=== PATIENT | female | born 1990 | race Caucasian/White ===

== ENCOUNTER 2016-12-20 23:27 | Inpatient (IN) | payer MEDICAID ==
[2016-12-21] MEDS ORDERED: Sodium Chloride 0.9% 10 ML Syringe FLUSH PRN (00:38)
[2016-12-21] MEDS ORDERED: Ondansetron 4 MG/2 ML SDV IVPUSH PRN ×2 (00:38→01:35)
[2016-12-21] MEDS ORDERED: Nalbuphine 20 MG/1 ML Amp IVPUSH PRN (00:38)
[2016-12-21] MEDS ORDERED: Oxytocin/Lactated Ringers 10 UNIT/1,000 ML BAG IV SCH ×2 (00:45→03:40)
[2016-12-21] MEDS: Lactated Ringers 1,000 ML IV SCH ×4 (01:05→08:44)
[2016-12-21] MEDS ORDERED: ePHEDrine 50 MG/ML SDV IVPUSH PRN (01:35)
[2016-12-21] MEDS ORDERED: fentaNYL 100 MCG/2 ML SDV EPIDUR PRN (01:35)
[2016-12-21] MEDS ORDERED: diphenhydrAMINE 50 MG/ML SDV IVPUSH PRN (01:35)
[2016-12-21] MEDS: Bupivacaine/fentaNYL/NS 100 ML Bag EPIDUR SCH ×3 (02:00→15:00)
--- NOTE | 2016-12-21 07:33 | PCM.LDHP ---
L&D History of Present Illness - General Date of Service: 12/21/16 Admit Problem/Dx: Patient Status Order with Admit Dx/Problem 12/21/16 00:46 Patient Status [ADT] Routine Admission Diagnosis/Problem Admission Diagnosis/Problem Labor established 12/21/16 07:11 Intrauterine at 40 and 6/7th weeks gestation. - History of Present Illness Introduction:: The patient is a 26-year-old, 1, para 0 white female with an DALLAS of , who was admitted during the night with complaints of contractions. She has made progression and is presently at 3 cm dilation. Course: The patient's last menstrual period was on 03/05/2016, was definite, using no control at the time of conception. She had an IUD removed in October of 2015 , and her first menses after this was in January and was a normal menses. Her DALLAS was changed to 12/15/2016 based on ultrasound done on 06/05/2016 and supported by ultrasound done on 08/08/2016. Her course has been relatively unremarkable. She desires and epidural. She had an [place] Depression Screen score of 0 on 08/07/2016. Tdap vaccine was given on 11/13/2016. Group B strep screen was negative. She declined genetic screening. She plans on . Her course weight gain was 131 up to 195 pounds. Her vital signs were stable throughout and fundal height growth was appropriate. She does have seasonal asthma. Laboratory Testing: Showed blood to be A positive with a negative antibody screen. Her hemoglobin was 13.2 at first visit and platelets were 257,000. She is rubella immune. RPR is nonreactive. Her urine culture was positive for gardnerella vaginalis. Hepatitis B and HIV assays were negative. Chlamydia and gonorrhea were negative. She declined genetic testing. Her second trimester testing showed a hemoglobin of 11.4 and her platelets were 231,000. Her 1-hour glucose was 129. Group B strep screen was negative. Allergies: tramadol; rash zithromax tabs; vomiting hydrocodone-acetaminophen; rash Current Medications: Metronidazole 500 mg oral tablet; 1 tablet twice daily Zyrtec 10 oral tablet ProAir HFA 108; 1-2 puffs every 4-6 hours PRN Past Medical History: Depression; previously on medication Asthma Past Surgical History: oral surgery; 2009 - Related Data Allergies/Adverse Reactions: Allergies Allergy/AdvReac Type Severity Reaction Status Date / Time hydrocodone Allergy Hives Verified 12/21/16 00:51 tramadol Allergy Hives Verified 12/21/16 00:51 azithromycin [From Zithromax] AdvReac Nausea and Verified 07/25/14 17:33 Vomiting Penicillins AdvReac Nausea and Verified 07/25/14 17:33 Vomiting Home Medications: Home Meds Albuterol [Ventolin HFA] 2 puff INH BID PRN 09/27/13 [History] Montelukast [Singulair] 10 mg PO DAILY 09/27/13 [History] Doxycycline [Vibramycin] 100 mg PO BID #20 tab 07/25/14 [Rx] oxyCODONE HCl/Acetaminophen [Percocet 5-325 mg Tablet] 1 each PO Q4H PRN #20 tablet 07/25/14 [Rx] Past Medical History - Past Health History Medical/Surgical History: Denies Medical/Surgical History Social & Family History - Family History Other Family History: Mother: alive; healthy Father: alive; HTN 1 brother and 3 sisters; 1 sister with epilepsy and 1 with bipolar disorder Maternal Grandmother: ; breast cancer Maternal Grandfather: ; colon cancer Paternal Grandmother: ; unknown Paternal Grandfather: ; unknown No bleeding, clotting, or anesthesia problems - Tobacco Use Smoking Status *Q: Current Every Day Smoker Years of Tobacco use: 3 Used Tobacco, but Quit: No - Alcohol Use Days Per Week of Alcohol Use: 1 Number of Drinks Per Day: 1 Total Drinks Per Week: 1 - Recreational Drug Use Recreational Drug Use: No - Living Situation & Occupation Social History Comment: The patient is , is Jakub Vega. They live in [place]. The patient is a homemaker. She does not use any signficant amoutns of alcohol, drugs or tobacco H&P Review of Systems - Review of Systems: Review Of Systems: See Below Free Text/Narrative: Respiratory: No dyspnea, recent infectious symptoms. Does have asthma and seasonal allergies. Cardiovascular: No chest pain or history of murmurs. Breasts: Changes associated only with . GI: No diarrhea, nausea, and constipation. : Changes associated with . No burning with urination. Musculoskeletal: Edema during and at present. Neurological: No headaches or vision changes L&D Exam - Exam Exam: See Below - Vital Signs Vital Signs: General: The patient is a well-developed, well-nourished, pleasant female of stated age, in no acute distress Vital Signs: Her blood pressure was 118/60 on 12/18/2016 on last clinic evaluation. Her weight was 195 with pregravid weight of 131. heart rate was 133. Body mass index prior to was 23.2 Skin: warm and dry without lesions Lungs: Clear to auscultation bilaterally Cardiovascular: Regular rate and rhythm without murmurs Breasts: Exam deferred having been done by earlier last year and found to be normal. Abdomen: Protuberant with and fundal height of 40 cm. Baby in a vertex presentation, cervical exam today was 3 cm, 100% effaced, soft, 2- and mid position. Extremities: 1+ edema Weight: 196 lb - Patient Data Lab Results Last 24 hrs: Laboratory Results - last 24 hr 12/20/16 12/20/16 Range/Units 23:59 23:59 WBC 13.02 H (3.98-10.04) K/mm3 RBC 4.20 (3.98-5.22) M/mm3 Hgb 12.5 (11.2-15.7) gm/L Hct 37.2 (34.1-44.9) % MCV 88.6 (79.4-94.8) fl MCH 29.8 (25.6-32.2) pg MCHC 33.6 (32.2-35.5) g/dl RDW Std Deviation 43.0 (36.4-46.3) fL Plt Count 206 (182-369) K/mm3 MPV 10.4 (9.4-12.3) fl Neut % (Auto) 67.4 (34.0-71.1) % Lymph % (Auto) 23.3 (19.3-51.7) % Elbert % (Auto) 8.3 (4.7-12.5) % Eos % (Auto) 0.4 L (0.7-5.8) Baso % (Auto) 0.2 (0.1-1.2) % Neut # (Auto) 8.78 H (1.56-6.13) K/mm3 Lymph # (Auto) 3.04 (1.18-3.74) K/mm3 Elbert # (Auto) 1.08 H (0.24-0.36) K/mm3 Eos # (Auto) 0.05 (0.04-0.36) K/mm3 Baso # (Auto) 0.02 (0.01-0.08) K/mm3 Blood Type A POSITIVE Gel Antibody Screen Negative Result Diagrams: 12/20/16 23:59 Problem List Initiated/Reviewed/Updated: Yes Orders Last 24hrs: Active Orders 24 hr Category Date Time Status Patient Status [ADT] Routine ADT 12/21/16 00:46 Active Activity as Tolerated [RC] PFP Care 12/21/16 00:46 Active Communication Order [RC] ASDIRECTED Care 12/21/16 00:46 Active Heart Tones [RC] ASDIRECTED Care 12/21/16 00:47 Active Notify Provider [RC] PFP Care 12/21/16 00:46 Active Notify Provider [RC] PRN Care 12/21/16 00:46 Active Peripheral IV Care [RC] . DIRECTED Care 12/21/16 00:47 Active Vital Signs [RC] PER UNIT ROUTINE Care 12/21/16 00:46 Active PATIENT RETYPE [BBK] Routine Lab 12/20/16 23:59 Results TYPE AND SCREEN [BBK] Routine Lab 12/21/16 00:38 Results Bupivacaine/fentaNYL/NS [fentaNYL/Bupivacaine/NS 2 MCG- Med 12/21/16 01:45 Active 0.125% 100 ML] 100 ml EPIDUR ASDIRECTED Lactated Ringers [Ringers, Lactated] 1,000 ml Med 12/21/16 00:45 Active IV ASDIRECTED Ondansetron [Zofran] Med 12/21/16 01:35 Active 4 mg IVPUSH ONETIME PRN Ondansetron [Zofran] Med 12/21/16 00:38 Active 4 mg IVPUSH Q4H PRN Oxytocin/Lactated Ringers [Pitocin in LR 10 Units/1,000 Med 12/21/16 00:45 Active ML] 10 unit in 1,000 ml IV .CONTINUOUS Sodium Chloride 0.9% [Saline Flush] Med 12/21/16 00:38 Active 10 ml FLUSH ASDIRECTED PRN diphenhydrAMINE [Benadryl] Med 12/21/16 01:35 Active 25 mg IVPUSH Q6H PRN ePHEDrine [ePHEDrine Sulfate] Med 12/21/16 01:35 Active 5 mg IVPUSH ASDIRECTED PRN fentaNYL [Sublimaze] Med 12/21/16 01:35 Active 100 mcg EPIDUR Q3H PRN Electronic Heart Tones Ext w TOCO [WOMSER] Oth 12/21/16 00:46 Ordered Routine Electronic Heart Tones Internal [WOMSER] Per Unit Ot 12/21/16 00:46 Ordered Routine Peripheral IV Insertion Adult [OM.PC] Routine Oth 12/21/16 00:46 Ordered Resuscitation Status Routine Resus Stat 12/21/16 00:38 Ordered Medication Orders Diphenhydramine HCl (Benadryl) 25 mg IVPUSH Q6H PRN PRN Reason: Pruritis Ephedrine Sulfate (Ephedrine Sulfate) 5 mg IVPUSH ASDIRECTED PRN PRN Reason: Hypotension Fentanyl (Sublimaze) 100 mcg EPIDUR Q3H PRN PRN Reason: Pain Fentanyl/Bupivacaine HCl (Fentanyl/Bupivacaine/Ns 2 Mcg-0.125% 100 Ml) 100 ml EPIDUR ASDIRECTED RAMONA Lactated Ringer's (Ringers, Lactated) 1,000 mls @ 100 mls/hr IV ASDIRECTED RAMONA Oxytocin/Lactated Ringer's (Pitocin In Lr 10 Units/1,000 Ml) 10 unit in 1,000 mls @ 500 mls/hr IV .CONTINUOUS RAMONA Ondansetron HCl (Zofran) 4 mg IVPUSH Q4H PRN PRN Reason: Nausea/Vomiting Ondansetron HCl (Zofran) 4 mg IVPUSH ONETIME PRN PRN Reason: Nausea/Vomiting Sodium Chloride (Saline Flush) 10 ml FLUSH ASDIRECTED PRN PRN Reason: Keep Vein Open Assessment/Plan Comment:: Assessment: 1. Term intrauterine at 40 and 6/7th weeks gestational age, progression of cervical dilation 2. Group B strep screen was negative 3. Epidural desired 4. Patient plans to nurse Plan: 1. Anticipate normal spontaneous vaginal delivery 2. Epidural PRN per patient's desire 3. CBC if epidural desired 4. Support nursing decision
--- NOTE | 2016-12-21 15:03 | PCM.SN ---
- Free Text/Narrative Note: in room at 1450 c/o pain epidural at T10 bolus with .25% bupivicaine 10 ml VSS out room at 1503
[2016-12-21] MEDS ORDERED: Aluminum Hydroxide/Magnesium Hydroxide/Simethicone Susp 30 ML Cup PO ONE (19:33)
--- NOTE | 2016-12-21 21:10 | PCM.SN ---
- Free Text/Narrative Note: Rebecca is a 26-year-old 1 now para 1001 white female who was admitted early this a.m. at 40-6/7 weeks gestational age in active labor. She progressed slowly to approximately 3 cm and then more rapidly until complete she became complete at approximately 1915 hrs. on 12/21/2016. Patient had artificial rupture membranes during the course of her labor and at 6 cm had an intrauterine pressure catheter placed. She was on Pitocin to augment her labor. Very light meconium-stained amniotic fluid was noted and Dr. Dumont was present at the delivery because of this. Patient delivered a 3370 g (7 pound 6.9 ounce) male infant named Matthew absent 2036 hrs. Baby delivered in a left occiput anterior position. The baby was noted to have a nuchal cord which was moderately tight and reduced over the baby 's body. After delivery the cord was clamped 2, cut and then baby is handed off to Dr. dumont in the warmer for his attention. R's were 8 and 9. Length was 19.5 inches. The cord was obtained. Placenta was delivered spontaneously in a Lacey presentation. It appeared intact and complete. Placenta was discarded. Patient is noted to have very superficial bilateral medial labia minora lacerations that appeared to be without significant anatomical distortion and were not bleeding. No evidence of hematoma noted. She did have a first-degree perineal laceration which is bleeding somewhat and was repaired with a single [id number] suture. Patient received Pitocin after the baby was delivered to facilitate uterine tone and decreased bleeding. After delivery of placenta the patient was returned to supine position. Epidural catheter was removed without problems. Estimated blood loss was 100 mL. Patient is planning to nurse. Condition: Good.
[2016-12-21] MEDS ORDERED: Bupivacaine 0.25% 10 ML SDV ONE (21:13)
[2016-12-21] MEDS ORDERED: Docusate Sodium 100 MG Cap PO PRN (21:13)
[2016-12-21] MEDS ORDERED: Lanolin 100% Cream 7 GM Tube TOP PRN (21:13)
[2016-12-21] MEDS ORDERED: Albuterol 6.7 GM Inhaler INH PRN (21:13)
[2016-12-21] MEDS ORDERED: Witch Hazel Medicated Pads 100/Jar TOP PRN (21:13)
[2016-12-21] MEDS ORDERED: Benzocaine/Menthol 20%-0.5% Spray 56 GM Canister TOP PRN (21:13)
[2016-12-21] MEDS ORDERED: Acetaminophen 325 MG Tab PO PRN (21:13)
[2016-12-21] MEDS ORDERED: Aluminum Hydroxide/Magnesium Hydroxide/Simethicone Susp 30 ML Cup PO PRN (21:20)
[2016-12-21] MEDS: Ibuprofen 600 MG Tab PO PRN (22:21)
[2016-12-22] MEDS: Prenatal Multivitamin with Calcium/Folic Acid/Iron Tab PO SCH (08:42)
[2016-12-22] MEDS: Ibuprofen 600 MG Tab PO PRN ×3 (08:44→20:01)
[2016-12-22] MEDS ORDERED: Montelukast 10 MG Tab PO SCH (09:00)
--- NOTE | 2016-12-22 09:28 | PCM48HPAN ---
Post Anesthesia Note - EVALUATION WITHIN 48HRS OF ANESTHETIC Vital Signs in Normal Range: Yes Patient Participated in Evaluation: Yes Respiratory Function Stable: Yes Airway Patent: Yes Cardiovascular Function Stable: Yes Hydration Status Stable: Yes Pain Control Satisfactory: Yes Nausea and Vomiting Control Satisfactory: Yes Mental Status Recovered: Yes
--- NOTE | 2016-12-22 15:48 | PCM.SN ---
- Free Text/Narrative Note: Rebecca is day 1. She is doing well. She has minimal lochia, is voiding well, ambulating without concerns and nursing without problems. Vital signs are stable, patient is afebrile. Abdomen is soft, nontender uteruses two finger breath below the umbilicus Legs nontender. Minimal edema noted. Assessment/plan: day 1, doing well. Recommend routine cares. CBC.
[2016-12-23] MEDS: Ibuprofen 600 MG Tab PO PRN ×2 (03:45→09:35)
[2016-12-23 04:18] VITALS: BP 113/69
[2016-12-23] MEDS: Prenatal Multivitamin with Calcium/Folic Acid/Iron Tab PO SCH (09:30)
--- NOTE | 2016-12-23 10:25 | PCM.DCSUM1 ---
Discharge Summary - Hospital Course Free Text/Narrative:: Rebecca is a 26-year-old 1 now para 1001 white female who was admitted early on the morning of 12/21/2016 at 40-6/7 weeks gestational age in active labor. She progressed slowly to approximately 3 cm and then more rapidly until complete she became complete at approximately 1915 hrs. on 12/21/2016. Patient had artificial rupture membranes during the course of her labor and at 6 cm had an intrauterine pressure catheter placed. She was on Pitocin to augment her labor. Very light meconium-stained amniotic fluid was noted and Dr. Dumont was present at the delivery because of this. Patient delivered a 3370 g (7 pound 6.9 ounce) male infant named Matthew absent 7 hrs. Baby delivered in a left occiput anterior position. The baby was noted to have a nuchal cord which was moderately tight and reduced over the baby 's body. After delivery the cord was clamped 2, cut and then baby is handed off to Dr. dumont in the warmer for his attention. R's were 8 and 9. Length was 19.5 inches. The cord was obtained. Placenta was delivered spontaneously in a Lacey presentation. It appeared intact and complete. Placenta was discarded. Patient is noted to have very superficial bilateral medial labia minora lacerations that appeared to be without significant anatomical distortion and were not bleeding. No evidence of hematoma noted. She did have a first-degree perineal laceration which is bleeding somewhat and was repaired with a single [id number] suture. Patient received Pitocin after the baby was delivered to facilitate uterine tone and decreased bleeding. After delivery of placenta the patient was returned to supine position. Epidural catheter was removed without problems. Estimated blood loss was 100 mL. Patient is planning to nurse. patient is done well. She is nursing well, voiding without problems, has had no significant pain. She is ambulating well and is desiring to be discharged. Follow-up CBC is within normal aunts for the period - Discharge Data Discharge Date: 12/23/16 Discharge Disposition: Home, Self-Care 01 Condition: Good - Patient Instructions Diet: Regular Diet as Tolerated (Nursing diet with increased calories and calcium as directed.) Activity: As Tolerated (No intercourse or tampons until bleeding resolves) Driving: May Drive Today Showering/Bathing: May Shower (May take a bath) Notify Provider of: Fever, Increased Pain, Swelling and Redness, Nausea and/or Vomiting - Discharge Plan Home Medications: Home Meds Albuterol [Ventolin HFA] 2 puff INH BID PRN 09/27/13 [History] Montelukast [Singulair] 10 mg PO DAILY 09/27/13 [History] Ibuprofen [IJD: Ibuprofen] 600 mg PO Q4H PRN #30 tablet 12/23/16 [Rx] Vit with Ca/FA/Iron [ Plus Iron] 1 each PO DAILY tablet [Rx] Referrals: Javier Ness MD [Physician] - [facility] - Discharge Summary/Plan Comment DC Time >30 min.: No Discharge Summary/Plan Comment: Discharge instructions: 1. Discharge home 2. Regular, high fiber, nursing diet was increased calories and calcium as directed. 3. Routine precautions given concern increased pain, bleeding, temperature, signs/symptoms of DVT/PE. 4. Medications per home medication was printed, discussed with him given to the patient. 5. Return to clinic-Dr. Ness-6 weeks-[facility]. Diagnosis: 40 week intrauterine , delivered Condition: Good - Patient Data Vitals - Most Recent: Last Vital Signs Temp 36.0 C 12/23/16 04:00 Pulse 79 12/23/16 04:00 Resp 15 12/23/16 04:00 BP 113/69 12/23/16 04:00 Pulse Ox 98 12/23/16 04:00 Weight - Most Recent: 88.904 kg I&O - Last 24 hours: Intake & Output 12/22/16 12/23/16 12/23/16 22:59 06:59 14:59 Intake Total 400 Balance 400 Lab Results - Last 24 hrs: Laboratory Results - last 24 hr 12/22/16 Range/Units 21:09 WBC 16.20 H (3.98-10.04) K/mm3 RBC 3.52 L (3.98-5.22) M/mm3 Hgb 10.4 L (11.2-15.7) gm/L Hct 31.9 L (34.1-44.9) % MCV 90.6 (79.4-94.8) fl MCH 29.5 (25.6-32.2) pg MCHC 32.6 (32.2-35.5) g/dl RDW Std Deviation 44.6 (36.4-46.3) fL Plt Count 158 L (182-369) K/mm3 MPV 10.0 (9.4-12.3) fl Med Orders - Current: Current Medications Acetaminophen (Tylenol) 650 mg PO Q4H PRN PRN Reason: mild pain or fever Al Hydroxide/Mg Hydroxide (Mag-Al Plus) 30 ml PO Q4H PRN PRN Reason: Heartburn Last Admin: 12/21/16 22:21 Dose: 30 ml Albuterol (Proventil Hfa) 0 gm INH BID PRN PRN Reason: Wheezing Benzocaine/Menthol (Dermoplast Pain Relief [place]) 0 gm TOP ASDIRECTED PRN PRN Reason: Perineal Comfort Measure Last Admin: 12/21/16 22:22 Dose: 1 can Docusate Sodium (Colace) 100 mg PO BID PRN PRN Reason: Constipation Emollient Ointment (Lansinoh Hpa) 0 gm TOP ASDIRECTED PRN PRN Reason: Sore Nipples Ibuprofen (Motrin) 600 mg PO Q4H PRN PRN Reason: Mild pain or fever Last Admin: 12/23/16 09:35 Dose: 600 mg Montelukast Sodium (Singulair) 10 mg PO DAILY [facility] Last Admin: 12/23/16 09:30 Dose: Not Given Prenat Multivit/Banning/Iron/Folic Ac ( Plus Iron) 1 each PO DAILY [facility] Last Admin: 12/23/16 09:30 Dose: 1 each Witch Maci (Tucks) 1 pad TOP ASDIRECTED PRN PRN Reason: Hemorrhoid pain Last Admin: 12/21/16 22:21 Dose: 1 box Discontinued Medications Al Hydroxide/Mg Hydroxide (Mag-Al Plus) 30 ml PO ONETIME ONE Stop: 12/21/16 19:34 Last Admin: 12/21/16 19:43 Dose: 30 ml Diphenhydramine HCl (Benadryl) 25 mg IVPUSH Q6H PRN PRN Reason: Pruritis Ephedrine Sulfate (Ephedrine Sulfate) 5 mg IVPUSH ASDIRECTED PRN PRN Reason: Hypotension Fentanyl (Sublimaze) 100 mcg EPIDUR Q3H PRN PRN Reason: Pain Last Admin: 12/21/16 02:00 Dose: 100 mcg Fentanyl/Bupivacaine HCl (Fentanyl/Bupivacaine/Ns 2 Mcg-0.125% 100 Ml) 100 ml EPIDUR ASDIRECTED RAMONA Last Admin: 12/21/16 15:00 Dose: 100 ml Lactated Ringer's (Ringers, Lactated) 1,000 mls @ 100 mls/hr IV ASDIRECTED RAMONA Last Admin: 12/21/16 08:44 Dose: 125 mls/hr Oxytocin/Lactated Ringer's (Pitocin In Lr 10 Units/1,000 Ml) 10 unit in 1,000 mls @ 500 mls/hr IV .CONTINUOUS RAMONA Oxytocin/Lactated Ringer's (Pitocin In Lr 10 Units/1,000 Ml) 10 unit in 1,000 mls @ 12 mls/hr IV TITRATE RAMONA; 2 MUNITS/MIN PRN Reason: Protocol Last Titration: 12/21/16 16:48 Dose: 4 munits/min, 24 mls/hr Nalbuphine HCl (Nubain) 10 mg IVPUSH Q2H PRN PRN Reason: Pain (moderate 4-6) Ondansetron HCl (Zofran) 4 mg IVPUSH Q4H PRN PRN Reason: Nausea/Vomiting Ondansetron HCl (Zofran) 4 mg IVPUSH ONETIME PRN PRN Reason: Nausea/Vomiting Sodium Chloride (Saline Flush) 10 ml FLUSH ASDIRECTED PRN PRN Reason: Keep Vein Open *Q Meaningful Use (DIS) - VTE *Q VTE Criteria *Q: - Stroke *Q Stroke Criteria *Q: - AMI *Q AMI Criteria *Q:
== END 2016-12-23 11:30 | disposition home or self-care (01) | DRG 775 ==
LOC: JD.OBCHECK 23:27 → JD.OB 23:30 → JD.OBCHECK 12-21 00:46 → OBSVTOIN 12-21 20:37 → JD.OB 12-21 20:37
PROVIDERS: ADMIT Obstetrics & Gynecology; ATTEND Obstetrics & Gynecology
PROC: 10E0XZZ Delivery of Products of Conception, External Approach (ICD-10-PCS; principal; 2016-12-21)
PROC: 0HQ9XZZ Repair Perineum Skin, External Approach (ICD-10-PCS; 2016-12-21)
PROC: 10907ZC Drainage of Amniotic Fluid, Therapeutic from Products of Conception, Via Natural or Artificial Opening (ICD-10-PCS; 2016-12-21)
PROC: 00HU33Z Insertion of Infusion Device into Spinal Canal, Percutaneous Approach (ICD-10-PCS; 2016-12-21)
PROC: 3E0R3CZ (ICD-10-PCS; 2016-12-21)
DX: O48.0 Post-term pregnancy (principal); O77.0 Labor and delivery complicated by meconium in amniotic fluid; O70.0 First degree perineal laceration during delivery; Z3A.41 41 weeks gestation of pregnancy; Z37.0 Single live birth; Z88.6 Allergy status to analgesic agent; Z88.1 Allergy status to other antibiotic agents; O99.334 Smoking (tobacco) complicating childbirth
CPT/HCPCS: 36415; 85025; 85027; 86850; 86900; 86901; A9270-GY; J2590; J3010; J7120

== ENCOUNTER 2018-05-16 18:57 | Emergency (ER) | payer MEDICAID, OTHER ==
[2018-05-16 19:24] VITALS: BP 118/79
--- NOTE | 2018-05-16 20:00 | EDM.PDOC ---
ED HPI GENERAL MEDICAL PROBLEM - General Chief Complaint: Back Pain or Injury Stated Complaint: SLIPPED AND INJURED BACK & HEADP Time Seen by Provider: 05/16/18 19:21 Source of Information: Reports: Patient, Family (), RN Notes Reviewed History Limitations: Reports: No Limitations - History of Present Illness INITIAL COMMENTS - FREE TEXT/NARRATIVE: The patient states that she slipped on ice and fell backwards, around 11:00 this morning. She states that she struck the back of her head, but is able to recall the fall, therefore does not appear that she was knocked unconscious. She states that she developed a headache, upper, middle, and lower back spasms, with pain to her left scapula and coccyx. She states that she ordinarily has right lower extremity sciatic pain, which continues, but since her fall, she also has decreased sensation below both of her knees. Reports a tingling sensation to her left forearm and left hand, including the fingers, but no left upper arm pain. No weakness anywhere. The patient states that she took one Flexeril and 2 tablets of Aleve, but her symptoms persist. The patient's PCP is Anne Marie Matt. Treatments FILENET ARCHITECT: Reports: NSAIDS, Other Medication(s) Back Pain Score (Numeric/FACES): 7 - Related Data Allergies Allergy/AdvReac Type Severity Reaction Status Date / Time hydrocodone Allergy Hives Verified 12/21/16 00:51 tramadol Allergy Hives Verified 12/21/16 00:51 azithromycin [From Zithromax] AdvReac Nausea and Verified 07/25/14 17:33 Vomiting Penicillins AdvReac Nausea and Verified 07/25/14 17:33 Vomiting Home Meds: Home Meds Albuterol [Ventolin HFA] 2 puff INH BID PRN 09/27/13 [History] Montelukast [Singulair] 10 mg PO DAILY 09/27/13 [History] Ibuprofen [IJD: Ibuprofen] 600 mg PO Q4H PRN #30 tablet 12/23/16 [Rx] Vit with Ca/FA/Iron [ Plus Iron] 1 each PO DAILY tablet [Rx] 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: Musculoskeletal History: Reports: Back Pain, Chronic (RLE sciatica) - Infectious Disease History Infectious Disease History: Reports: Chicken Pox, Influenza - Past Surgical History HEENT Surgical History: Reports: Oral Surgery (wisdom teeth extraction) Social & Family History - Family History Family Medical History: Noncontributory - Tobacco Use Smoking Status *Q: Former Smoker Years of Tobacco use: 7 Packs/Tins Daily: 0.1 Month/Year Tobacco Last Used: Quit around Dec 2017 - Caffeine Use Caffeine Use: Reports: Coffee - Alcohol Use Alcohol Use History: Yes Alcohol Use Frequency: Socially - Recreational Drug Use Recreational Drug Use: No - Living Situation & Occupation Living situation: Reports: , with Spouse, with Family (2 kids) Occupation: Employed ([employer]) ED ROS GENERAL - Review of Systems Review Of Systems: ROS reveals no pertinent complaints other than HPI. ED EXAM, GENERAL - Physical Exam Exam: See Below Exam Limited By: No Limitations General Appearance: Alert, WD/WN, No Apparent Distress Eye Exam: Bilateral Eye: EOMI, Normal Inspection, PERRL Ears: Normal External Exam, Normal Canal, Hearing Grossly Normal, Normal TMs Nose: Normal Inspection, Normal Mucosa, No Blood Throat/Mouth: Normal Inspection, Normal Lips, Normal Teeth, Normal Gums, Normal Oropharynx, Normal Voice, No Airway Compromise Head: Atraumatic (No visible or palpable abnormality to the back of the head, such as swelling, erythema, ecchymosis, or abrasion. The patient reports mild tenderness to palpation of her occiput.), Normocephalic Neck: Normal Inspection, Supple, Non-Tender, Full Range of Motion Respiratory/Chest: No Respiratory Distress, Lungs Clear, Normal Breath Sounds, No Accessory Muscle Use Cardiovascular: Normal Peripheral Pulses, Regular Rate, Rhythm, No Edema, No Gallop, No JVD, No Murmur, No Rub Peripheral Pulses: 4+: Radial (L), Radial (R) GI/Abdominal: Normal Bowel Sounds, Soft, Non-Tender, No Organomegaly, No Distention, No Abnormal Bruit, No Mass (Female) Exam: Deferred Rectal (Female) Exam: Deferred Back Exam: Normal Inspection (No visible abnormalities to the entire back, such as swelling, erythema, ecchymosis, or abrasions.), Full Range of Motion, Paraspinal Tenderness (Less tender than over the spinous processes), Vertebral Tenderness (Entire thoracic, lumbar, and sacral slacks coccygeal), Other (The patient is able to flex the spine to 80. She is able to extend to 45. She is able to tilt the spine bilaterally to 45. She is able to twist the spine bilaterally to 30. Unilateral knee bend is normal bilaterally. Straight leg raise on the right induces low back pain, but no radicular symptoms, at 80. Straight leg raise on the left induces sciatica symptoms at 70.) Extremities: Normal Inspection (No visible abnormality to the left upper extremity, such as swelling, erythema, ecchymosis, or abrasion.), Normal Range of Motion, No Pedal Edema, Normal Capillary Refill, Other (No visible abnormality over the patient's left scapula, such as swelling, erythema, ecchymosis, or abrasion, however, she reports tenderness to palpation) Neurological: Alert, Oriented, CN II-XII Intact, Normal Cognition, Normal Gait ( in ED exam room), No Motor/Sensory Deficits, Other (The patient reports decreased sensation to her left forearm and hand) Psychiatric: Normal Affect Skin Exam: Warm, Dry, Intact, Normal Color, No Rash Course - Vital Signs Last Recorded V/S: Last Vital Signs Temp 36.5 C 05/16/18 19:20 Pulse 86 05/16/18 19:20 Resp 16 05/16/18 19:20 BP 118/79 05/16/18 19:20 Pulse Ox 100 05/16/18 19:20 - Orders/Labs/Meds Orders: Active Orders 24 hr Category Date Time Status Chest 2V [CR] Stat Exams 05/16/18 19:53 Taken Meds: Medications Discontinued Medications Generic Name Dose Route Start Last Admin Trade Name Carmen PRN Reason Stop Dose Admin Hydrocodone Bitart/Acetaminophen 2 tab 05/16/18 20:45 05/16/18 20:51 Groom 325-5 Mg PO 05/16/18 20:46 2 tab ONETIME ONE Administration - Re-Assessments/Exams Free Text/Narrative Re-Assessment/Exam: 05/16/18 19:54 The patient has numerous aches and pains after slipping and falling on ice earlier today. On examination, however, she has few abnormalities. I do not find a bump or abrasion on the back of her head, her neurologic examination is completely normal, and while the patient complains of tenderness to her posterior left scapula and along her thoracic, lumbar, and sacral/coccygeal spinous processes, there are no visible abnormalities, such as swelling, erythema, ecchymosis, or abrasion. I asked the patient if she is concerned that any particular bones are broken. She is concerned that she might have broken some ribs, or perhaps her scapula. Based on her history of a ground-level fall, in combination with her physical examination, I doubt that she has fractured a rib, and there is no question that she has not fractured her scapula, however, I have ordered a chest x-ray to evaluate both. Additionally, the patient's is concerned about the patient's head. I explained to the patient and her that with a history of a ground-level fall with no loss of consciousness and a completely normal neurologic examination, a CT scan of the head in a patient of her age is actually contraindicated, because of unnecessary radiation and increased cancer risk. I explained that the likelihood of finding an abnormality on her CT scan, in particular, one that would change our management, is not zero, but is so low as to not justify the radiation risk. Neither the patient nor her seem very happy about this decision. 05/16/18 20:40 2-view chest radiograph appears to be grossly normal. The cardiac silhouette is within normal limits. No pulmonary vascular congestion. No pleural effusions. No focal infiltrate. No pneumothorax. Formal read per the Radiologist pending. 05/16/18 20:46 X-ray results discussed with the patient. Jamee CEE was present. I explained that with respect to the patient's left forearm, she likely has a neuropraxia - essentially, a stunned nerve. There is no specific treatment for this, other than to continue to use the arm as best she can, and rub the arm, to reacquaint the nerves with what is normal. The tingling and numbness should grover within a few days. The remainder of her aches and pains appear to be due to mild contusions. I reassured her that none appear to be serious, that no visible abnormalities, such as bruises or swelling or abrasions were seen, and while it is understandable that she is sore, I reassured her that nothing is broken. For tonight's purposes, the patient will be given 2 tablets of Groom. I am recommending that she get a good night's sleep tonight, then resume her usual activities tomorrow. I am recommending that she take [id number] ibuprofen as needed for aches and pains, but that she not simply lie in bed because she is sore. The patient indicated that she will likely see her chiropractor tomorrow. Departure - Departure Time of Disposition: 20:48 Disposition: Home, Self-Care 01 Condition: Good Clinical Impression: Fall from slipping on ice, Back pain, Neuropraxia of left upper extremity - Discharge Information *PRESCRIPTION DRUG MONITORING PROGRAM REVIEWED*: Not Applicable *COPY OF PRESCRIPTION DRUG MONITORING REPORT IN PATIENT DENISSE: Not Applicable Instructions: Back Pain, Adult Referrals: Anne Marie Matt SEAT NAILER [Primary Care Provider] - Forms: ED Department Discharge Additional Instructions: You were seen in the emergency room after slipping and falling on ice this morning. Workup in the ER included a chest x-ray, which was normal. You do not have a broken rib or a broken shoulder blade. While you reported a headache, no visible abnormality was found to your head, and your neurologic examination was completely normal. As explained, a CT scan was not recommended in your case. The tingling sensation to your left forearm and hand is likely due to neuropraxia = a stunned nerve. No specific treatment is necessary, however, we do recommend that you try to use your left arm as usual, and rub your elbow and arm to reacquaint your nerves with normal sensation. Normal sensation should return within a few days. While you reported back pain radiating down both lower extremities, no visible abnormalities were found, such as bruising, swelling, or abrasions. Your examination is not consistent with a new herniated intervertebral disc. You likely have mild contusions to these areas, but no broken bones. You were given 2 tablets of Groom in the ER. This should help with your pain and help you to sleep. Try to get plenty of rest tonight, then resume your usual activities in the morning. Take [id number] ibuprofen, 2-3 tablets ( 400-600 mg) every 8 hours, with food, as needed for discomfort. Follow-up with your PCP, Anne Marie Matt, as needed. If any other problems, please do not hesitate to return to the ER. - My Orders Last 24 Hours: My Active Orders 05/16/18 19:53 Chest 2V [CR] Stat - Assessment/Plan Last 24 Hours: My Active Orders 05/16/18 19:53 Chest 2V [CR] Stat
[2018-05-16] MEDS ORDERED: Acetaminophen/HYDROcodone 325-5 MG Tab PO ONE (20:45)
--- NOTE | 2018-05-17 06:51 | CR ---
Chest: Two views of the chest were obtained. Comparison: No prior chest x-ray is available. Heart size and mediastinum are normal. Lungs are clear. Slight scoliosis is seen. Bony structures are otherwise unremarkable. Impression: 1. Nothing acute is seen on two-view chest x-ray. Diagnostic code #2
== END 2018-05-16 21:02 | disposition home or self-care (01) ==
LOC: JD.ED 18:57
DX: S54.92XA Injury of unspecified nerve at forearm level, left arm, initial encounter (principal); M54.6 Pain in thoracic spine; M54.5 Low back pain; W00.0XXA Fall on same level due to ice and snow, initial encounter; Z88.5 Allergy status to narcotic agent; Z88.8 Allergy status to other drugs, medicaments and biological substances; Z88.1 Allergy status to other antibiotic agents; Z79.899 Other long term (current) drug therapy; Z88.0 Allergy status to penicillin; Z87.891 Personal history of nicotine dependence
CPT/HCPCS: 71046; 99284; A9270

== ENCOUNTER 2021-04-15 20:07 | Emergency (ER) | payer OTHER ==
[2021-04-15 20:21] VITALS: BP 125/61; PULSE 114
[2021-04-15] MEDS ORDERED: Ondansetron 4 MG/2 ML SDV IVPUSH ONE (20:25)
[2021-04-15] MEDS ORDERED: Ketorolac 30 MG/ML SDV IVPUSH STA (20:26)
[2021-04-15] MEDS ORDERED: Sodium Chloride 0.9% 1,000 ML IV SCH (20:30)
--- NOTE | 2021-04-15 20:30 | EDM.PDOC ---
ED HPI GENERAL MEDICAL PROBLEM - General Chief Complaint: Trauma Stated Complaint: FALL/ HEAD AND BACK INJURY Time Seen by Provider: 04/15/21 20:09 Source of Information: Reports: Patient, Family () History Limitations: Reports: No Limitations - History of Present Illness INITIAL COMMENTS - FREE TEXT/NARRATIVE: A trauma alert was called for this patient. Mrs. Vega is a 30-year-old woman who is now brought to the ED by her after she fell down a flight of stairs around 19:45 this evening. She states that she was cleaning the carpet and was carrying the carpet cleaning device up the stairs, when it snagged on one of the steps, causing her to fall. She states that she struck her face, anterior chest, and right flank area. She states that she remembers the fall, and the patient's states that he heard her scream and fall, as he was just getting home at that moment, therefore loss of consciousness is not suspected. The patient has a laceration to her upper right eyelid, and is complaining of a headache, nausea, anterior chest pain, and right flank pain. She is not on an anticoagulant. At triage, the patient was found to be mildly tachycardic at 114 bpm, otherwise, she was hemodynamically stable, afebrile, saturating 100% on room air. She is tearful and anxious, but does not appear to be in acute distress. Prior to pepe's fall, the patient denies having a recent fever, chills, sore throat, ear pain, nasal or sinus congestion, cough, dyspnea, chest pain, palpitations, nausea, vomiting, constipation, diarrhea, abdominal pain, urinary symptoms, recent weight gain or weight loss, recent bloody bowel movements or black bowel movements, recent joint aches, headaches, or rashes. I reviewed the PMHx/PSHx/SocHx, which was reviewed with the patient by the RN. The patient's PCP is Briana Petersen NP, at [facility] in [place]. Her woman's health provider is Cindy Caraballo NP. She has not received a COVID vaccination, nor an influenza vaccination this season. Right Back Pain Score (Numeric/FACES): 8 - Related Data Allergies Allergy/AdvReac Type Severity Reaction Status Date / Time hydrocodone Allergy Hives Verified 04/15/21 20:22 tramadol Allergy Hives Verified 04/15/21 20:22 azithromycin [From Zithromax] AdvReac Nausea and Verified 04/15/21 20:22 Vomiting Penicillins AdvReac Nausea and Verified 04/15/21 20:22 Vomiting Home Meds: Home Meds Albuterol [Ventolin HFA] 2 puff INH BID PRN 09/27/13 [History] ALPRAZolam [Xanax] 0.5 mg PO TID 04/15/21 [History] Citalopram [Citalopram HBr] 40 mg PO DAILY 04/15/21 [History] Cyclobenzaprine [Flexeril] 10 mg PO BID 04/15/21 [History] Ethinyl Estradiol/Drospirenone [Mellissa 28 Tablet] 1 tab PO DAILY 04/15/21 [History] Past Medical History Musculoskeletal History: Reports: Back Pain, Chronic (RLE sciatica) Psychiatric History: Reports: Addiction, Anxiety, Depression - Infectious Disease History Infectious Disease History: Reports: Chicken Pox, Influenza - Past Surgical History HEENT Surgical History: Reports: Oral Surgery (wisdom teeth extraction) Social & Family History - Caffeine Use Caffeine Use: Reports: Coffee - Living Situation & Occupation Living situation: Reports: , with Spouse, with Family (2 kids) Occupation: Employed ([employer]) Review of Systems - Review of Systems Review Of Systems: Comprehensive ROS is negative, except as noted in HPI. ED EXAM, GENERAL - Physical Exam Exam: See Below Exam Limited By: No Limitations General Appearance: Alert, WD/WN Eye Exam: Left Eye: Periorbital Changes (Small partial-thickness laceration to upper left eyelid), Bilateral Eye: EOMI, Normal Inspection, PERRL Ears: Normal External Exam, Normal Canal, Hearing Grossly Normal, Normal TMs Nose: Normal Inspection, Normal Mucosa, No Blood Throat/Mouth: Normal Inspection, Normal Lips, Normal Teeth, Normal Gums, Normal Oropharynx, Normal Voice, No Airway Compromise Head: Atraumatic, Normocephalic Neck: Normal Inspection, Supple, Non-Tender, Full Range of Motion. No: Lymphadenopathy (L), Lymphadenopathy (R) Respiratory/Chest: No Respiratory Distress, Lungs Clear, Normal Breath Sounds, No Accessory Muscle Use Cardiovascular: Normal Peripheral Pulses, Regular Rate, Rhythm, No Edema, No Gallop, No JVD, No Murmur, No Rub Peripheral Pulses: 3+: Radial (L), Radial (R) GI/Abdominal: Normal Bowel Sounds, Soft, Non-Tender, No Organomegaly, No Distention, No Abnormal Bruit, No Mass Back Exam: Other (Right flank pain and tenderness - no visible abnormality) Extremities: Normal Inspection, Normal Range of Motion, No Pedal Edema, Normal Capillary Refill Neurological: Alert, Oriented, CN II-XII Intact, Normal Cognition, No Motor/Sensory Deficits Psychiatric: Anxious, Tearful Skin Exam: Warm, Dry, Intact, Normal Color, No Rash Course - Vital Signs Last Recorded V/S: Last Vital Signs Temp 37.0 C 04/15/21 20:20 Pulse 114 H 04/15/21 20:20 Resp 20 04/15/21 20:20 BP 125/61 04/15/21 20:20 Pulse Ox 100 04/15/21 20:20 - Orders/Labs/Meds Orders: Active Orders 24 hr Category Date Time Status Abdomen Pelvis w Cont [CT] Stat Exams 04/15/21 20:24 Taken Chest 1V Frontal [CR] Stat Exams 04/15/21 20:24 Taken Head wo Cont [CT] Stat Exams 04/15/21 20:23 Taken CULTURE URINE [MREF] Stat Lab 04/15/21 20:31 Received Labs: Laboratory Tests 04/15/21 04/15/21 Range/Units 20:31 20:31 Urine Color Yellow (Yellow) Urine Appearance Slt cloudy H (Clear) Urine pH 5.5 (5.0-8.0) Ur Specific [place] > or = 1.030 (1.005-1.030) Urine Protein 2+ H (Negative) Urine Glucose (UA) Negative (Negative) Urine Ketones Negative (Negative) Urine Occult Blood 2+ H (Negative) Urine Nitrite Negative (Negative) Urine Bilirubin Negative (Negative) Urine Urobilinogen 0.2 (0.2-1.0) Ur Leukocyte Esterase Negative (Negative) Urine RBC 10-20 H (0-5) /hpf Urine WBC 10-20 H (0-5) /hpf Ur Squamous Epith Cells 5-10 H (0-5) /hpf Amorphous Sediment Few H (NOT SEEN) /hpf Urine Bacteria Moderate H (FEW) /hpf Urine Mucus Few (FEW) /hpf Urine HCG, Qual Negative (NEGATIVE) Meds: Medications Discontinued Medications Generic Name Dose Route Start Last Admin Trade Name Carmen PRN Reason Stop Dose Admin Cyclobenzaprine HCl 10 mg 04/15/21 22:26 04/15/21 22:57 Cyclobenzaprine 10 Mg Tab PO 04/15/21 22:27 10 mg ONETIME ONE Administration Hydromorphone HCl 0.5 mg 04/15/21 21:53 04/15/21 21:56 Hydromorphone 0.5 Mg/0.5 Ml Syringe IVPUSH 04/15/21 21:54 0.5 mg ONETIME ONE Administration Sodium Chloride 1,000 mls @ 150 mls/hr 04/15/21 20:30 04/15/21 20:42 Normal Saline IV 150 mls/hr ASDIRECTED RAMONA Administration Iopamidol 100 ml 04/15/21 21:22 04/15/21 21:25 Iopamidol 612 Mg/Ml 100 Ml Bottle IVPUSH 04/15/21 21:23 100 ml ONETIME ONE Administration Ketorolac Tromethamine 30 mg 04/15/21 20:26 04/15/21 20:42 Ketorolac 30 Mg/Ml Sdv IVPUSH 04/15/21 20:27 30 mg ONETIME STA Administration Ondansetron HCl 4 mg 04/15/21 20:25 04/15/21 20:42 Ondansetron 4 Mg/2 Ml Sdv IVPUSH 04/15/21 20:26 4 mg ONETIME ONE Administration Sodium Chloride 10 ml 04/15/21 21:22 04/15/21 21:26 Sodium Chloride 0.9% 10 Ml Sdv FLUSH 04/15/21 21:23 10 ml ONETIME ONE Administration - Re-Assessments/Exams Free Text/Narrative Re-Assessment/Exam: 04/15/21 20:27 I have ordered a work-up that includes a CT of the head without contrast, a portable chest x-ray, and a CT of the abdomen and pelvis with IV contrast only, along with a urinalysis and urine test. In the meantime, the patient will be treated with IV Toradol, IV Zofran, and IV fluid. Her chart indicates hives as a reaction to opioids. 04/15/21 21:53 Notified by Dorie CEE that the patient's was demanding that the patient receive something stronger for pain, or he was going to "freak out". I went and talked with the patient and her . I pointed out that her chart indicates that she had hives to opioids. The patient states that that was to tramadol when she was 21 years old, but that she has had tramadol numerous times since, without a problem. I therefore ordered IV Dilaudid. 04/15/21 21:59 Notified by Dyan CEE that the patient has a drug patch on. I am still okay with the patient receiving Dilaudid, but the patient will be informed that she will likely test positive for opioids, and that I cannot attest that a positive test is due to the Dilaudid that we gave her, and not due to an opioid that she took on her own. If she accepts the Dilaudid, there will likely be legal consequences. 04/15/21 22:09 CT of the head without contrast is read by [facility] as: 1. No acute intracranial abnormality. 2. No intracranial hemorrhage. 3. No skull fracture. CT of the abdomen and pelvis with IV contrast is read by [facility] as: 1. Possible mild right gluteal subcutaneous contusion. 2. No other sign of acute traumatic sequelae to the abdomen and pelvis. Portable chest radiograph appears to be grossly normal. The cardiac silhouette is within normal limits. No pulmonary vascular congestion. No pleural effusions seen on this AP view. No focal infiltrate. No pneumothorax. Mild thoracic scoliosis noted. Formal read per the Radiologist pending. The patient's urinalysis is remarkable for a slightly cloudy appearance, 2+ occult blood with 10-20 RBCs, leukocyte esterase negative with 10-20 WBCs, nitrate negative with moderate bacteria, and 5-10 squamous epithelial cells. Her urine test is negative. 04/15/21 22:26 Test results discussed with the patient and her . As above, today's work-up is grossly unremarkable. I explained that her urinalysis is abnormal and could be due to a urinary tract infection, however, it is not a clean sample, and the patient has no urinary symptoms, therefore I am not going to start her on an antibiotic at this time. I recommended that she contact the office of her PCP on Sunday morning to have them check on the urine culture result, to see if there is something that needs to be treated. For pain, I will have to recommend acetaminophen, ibuprofen, or naproxen. I am not going to prescribe an opioid. Although the patient stated that she has cyclobenzaprine in her purse, she requested that I give her a tablet prior to discharge. Departure - Departure Time of Disposition: 22:28 Disposition: Home, Self-Care 01 Condition: Good Clinical Impression: Fall at home, Eyelid laceration, right - Discharge Information *PRESCRIPTION DRUG MONITORING PROGRAM REVIEWED*: Not Applicable *COPY OF PRESCRIPTION DRUG MONITORING REPORT IN PATIENT DENISSE: Not Applicable Instructions: Facial Laceration Referrals: Briana Petersen NP [Primary Care Provider] - Cindy Caraballo NP [Nurse Practitioner] - Forms: ED Department Discharge Additional Instructions: You were seen in the emergency room after falling down a flight of stairs, striking her face, chest, and right flank area. Work-up in the ER included CT scans of your head, abdomen, and pelvis, as well as a chest x-ray, a urinalysis, and urine test. The CT scans and chest x-ray found no injuries. Your urinalysis shows some abnormalities, but is not a "clean" sample, therefore the abnormalities could be due to contamination. A sample of urine has been sent for culture. We recommend that you contact the office of your PCP, Briana Petersen NP, on Sunday morning, to have them check on your urine culture results, to make sure that you are not growing a bacteria that requires treatment. For your pain, we recommend you take [id number] acetaminophen (Tylenol), ibuprofen (Advil, Motrin), or naproxen (Aleve) as directed on label. Get plenty of rest tonight, then resume your usual activities in the morning, even though you will be sore. If any other problems, please do not hesitate to return to the ER. Sepsis Event Note (ED) - Focused Exam Vital Signs: Vital Signs Temp Pulse Resp BP Pulse Ox 04/15/21 20:20 37.0 C 114 H 20 125/61 100 - My Orders Last 24 Hours: My Active Orders 04/15/21 20:23 Head wo Cont [CT] Stat 04/15/21 20:24 Abdomen Pelvis w Cont [CT] Stat Chest 1V Frontal [CR] Stat 04/15/21 20:31 CULTURE URINE [MREF] Stat - Assessment/Plan Last 24 Hours: My Active Orders 04/15/21 20:23 Head wo Cont [CT] Stat 04/15/21 20:24 Abdomen Pelvis w Cont [CT] Stat Chest 1V Frontal [CR] Stat 04/15/21 20:31 CULTURE URINE [MREF] Stat
[2021-04-15] MEDS ORDERED: Iopamidol 612 MG/ML 100 ML Bottle IVPUSH ONE (21:22)
[2021-04-15] MEDS ORDERED: Sodium Chloride 0.9% 10 ML SDV FLUSH ONE (21:22)
[2021-04-15] MEDS ORDERED: HYDROmorphone 0.5 MG/0.5 ML Syringe IVPUSH ONE (21:53)
[2021-04-15] MEDS ORDERED: Cyclobenzaprine 10 MG Tab PO ONE (22:26)
--- NOTE | 2021-04-16 07:04 | CT ---
CT abdomen and pelvis Technique: Multiple axial sections were obtained from above the dome of the diaphragm inferiorly through the pubic symphysis. Intravenous contrast was utilized. Delayed images were obtained through the bladder. Reconstructed coronal and sagittal images were obtained. Comparison: Prior CT abdomen and pelvis study of 06/07/17. Findings: Visualized lung bases show nothing acute. Heart size appears normal as seen. Liver contains no focal parenchymal abnormality. Spleen size is normal. Adrenal glands show no nodule. Pancreas appears within normal limits. Kidneys show symmetric contrast enhancement. No hydronephrosis or mass is seen. Abdominal aorta shows no aneurysm. Gallbladder contains no calcified gallstones. No retroperitoneal adenopathy or mesenteric abnormalities are seen. No pelvic mass or adenopathy is seen. No findings of appendicitis are appreciated. Delayed images show contrast within the bladder. Bone window settings were reviewed. Limbus type vertebra are noted off the anterior and superior L5 vertebral body which is stable from previous study and is incidental. No acute osseous abnormality is appreciated. Very minimal area of density is seen within the subcutaneous fat in the right buttocks most likely representing a small amount of contusion. Impression: 1. Minimal subcutaneous contusion within the right buttock. 2. Limbus vertebra within the anterior and superior L5 vertebral body which is stable and is incidental. 3. Other portions of the CT exam of the abdomen and pelvis show no discrete abnormality. Diagnostic code #2 I agree with preliminary report from [facility], finalized on 04/15/21, 10:29 PM DRIVER/MERCHANDISER, code 1
--- NOTE | 2021-04-16 07:04 | CT ---
Head CT Technique: Multiple axial sections through the brain were obtained. Intravenous contrast was not utilized. Reconstructed coronal and sagittal images were also obtained. Comparison: No prior intracranial imaging is available. Findings: Ventricles along with basal cisterns and sulci over the convexities are within normal limits for the patient's age. No abnormal parenchymal densities are seen. No evidence of intracranial hemorrhage is seen. No midline shift or mass-effect is seen. Questionable soft tissue swelling within the left frontal scalp above the orbit. Bone window settings were reviewed. No acute calvarial abnormality is seen. Visualized mastoid sinuses and paranasal sinuses show nothing acute. No acute calvarial abnormality is appreciated. Impression: 1. Questionable soft tissue swelling above the orbit on the left side. Please correlate clinically. 2. No abnormality is identified on noncontrast head CT study. Diagnostic code #1 I agree with preliminary report from [facility], finalized on 04/15/21, 10:30 PM CONTINUOUS [employer]PERATOR, Code 1
--- NOTE | 2021-04-16 07:07 | CR ---
Chest: Frontal view of the chest was obtained. Comparison: Prior chest x-ray of 05/16/18. Heart size and mediastinum are within normal limits. Mild scoliosis is noted within the spine. Lungs show no acute parenchymal change. Impression: 1. Nothing acute is seen on frontal chest x-ray. Diagnostic code #2
== END 2021-04-15 22:58 | disposition home or self-care (01) ==
LOC: JD.ED 20:07
DX: S01.111A Laceration without foreign body of right eyelid and periocular area, initial encounter (principal); Z88.5 Allergy status to narcotic agent; Z88.1 Allergy status to other antibiotic agents; Z88.0 Allergy status to penicillin; W10.9XXA Fall (on) (from) unspecified stairs and steps, initial encounter; Y92.009 Unspecified place in unspecified non-institutional (private) residence as the place of occurrence of the external cause
CPT/HCPCS: 70450; 70450-26; 71045; 71045-26; 74177; 74177-26; 81001; 81025; 87086; 96374; 96375; 99284; 99284-25; A9270-GY; J1170; J1885; J2405; J7030; Q9967

== ENCOUNTER 2022-11-18 21:12 | Emergency (ER) | payer MEDICAID ==
[2022-11-18] MEDS ORDERED: Famotidine 20 MG/2 ML SDV IVPUSH ONE (21:28)
[2022-11-18 21:39] LABS: BASOPHILS ABSOLUTE AUTO 0.27 K/mm3 (0.01-0.08); BASOPHILS PERCENT AUTO 4.7 % (0.1-1.2); EOSINOPHILS PERCENT AUTO 0 (0.7-5.8); HEMATOCRIT 39.7 % (34.1-44.9); HEMOGLOBIN 13.2 gm/dl (11.2-15.7); IMMATURE GRAN ABSOLUTE AUTO 0.01 K/mm3 (0.00-0.10); IMMATURE GRAN PERCENT AUTO 0.2 % (<=1.0); LYMPHOCYTES ABSOLUTE AUTO 1.57 K/mm3 (1.18-3.74); LYMPHOCYTES PERCENT AUTO 27.6 % (19.3-51.7); MEAN CORPUSCULAR HGB CONC 33.2 g/dl (32.2-35.5); MEAN CORPUSCULAR VOLUME 87.3 fl (79.4-94.8); MEAN PLATELET VOLUME 9.5 fl (9.4-12.3); MONOCYTES ABSOLUTE AUTO 1.03 K/mm3 (0.24-0.36); MONOCYTES PERCENT AUTO 18.1 % (4.7-12.5); NEUTROPHILS ABSOLUTE AUTO 2.81 K/mm3 (1.56-6.13); NEUTROPHILS PERCENT AUTO 49.4 % (34.0-71.1); PLATELET COUNT,PLT 168 K/mm3 (182-369); RED BLOOD CELL COUNT 4.55 M/mm3 (3.98-5.22); WHITE BLOOD CELL COUNT,WBC 5.69 K/mm3 (3.98-10.04)
[2022-11-18 22:03] LABS: ALANINE AMINOTRANSFERASE,ALT 53 U/L (14-59); ALBUMIN 3.6 g/dl (3.4-5.0); ALKALINE PHOSPHATASE 100 U/L (46-116); ANION GAP 12.7 (5-15); ASPARTATE AMNIOTRANSFERASE,AST 46 U/L (15-37); BILIRUBIN TOTAL 0.3 mg/dL (0.2-1.0); BLOOD UREA NITROGEN,BUN 13 mg/dL (7-18); BUN/CREATININE RATIO 16.3 (14-18); CALCIUM 8.7 mg/dL (8.5-10.1); CARBON DIOXIDE,CO2 25 mEq/L (21-32); CHLORIDE,CL 100 mEq/L (98-107); CREATININE 0.8 mg/dL (0.55-1.02); EST CRCL DRUG DOSING (CG) 85.06 mL/min; ESTIMATED GFR 102 mL/min (>60); GLUCOSE RANDOM 125 mg/dL (70-99); PROTEIN TOTAL,TP 7.3 g/dl (6.4-8.2); SODIUM,NA 134 mEq/L (136-145)
[2022-11-18 22:06] LABS: SLIDE REVIEW ABNORMAL SMEAR
[2022-11-18 22:08] LABS: POTASSIUM,K 3.7 mEq/L (3.5-5.1); TROPONIN I HIGH SENSITIVITY < 4 pg/mL (<=51)
[2022-11-18 22:19] LABS: INR 0.97; PROTHROMBIN TIME 10.4 SECONDS (9.7-12.0)
[2022-11-18 22:22] LABS: D-DIMER QUANTITATIVE 1.34 mg/L (0.19-0.50)
[2022-11-18] MEDS ORDERED: Iopamidol 755 Mg/ML 100 ML Bottle IVPUSH ONE (23:04)
[2022-11-18] MEDS: Sodium Chloride 0.9% 100 ML IV SCH ×2 (23:05→23:17)
[2022-11-18] MEDS ORDERED: Ketorolac 30 MG/ML SDV IVPUSH ONE (23:53)
[2022-11-19 00:07] VITALS: PULSE 107
[2022-11-19 02:54] VITALS: BP 111/81
== END 2022-11-19 00:33 | disposition home or self-care (01) ==
LOC: JD.ED 21:12
DX: L50.9 Urticaria, unspecified (principal); R07.89 Other chest pain; J45.909 Unspecified asthma, uncomplicated; Z88.5 Allergy status to narcotic agent; Z88.1 Allergy status to other antibiotic agents; Z88.0 Allergy status to penicillin; Z86.16 Personal history of COVID-19; Z79.899 Other long term (current) drug therapy
CPT/HCPCS: 36415; 71045; 71275; 80053; 84484; 85025; 85379; 85610; 93005; 96374; 96375; 99285; J1885; J3490; Q9967; 93010; 99284